=== PATIENT | female | born 1955 | race Caucasian/White ===

== ENCOUNTER 2017-06-26 00:15 | Inpatient (IN) | payer OTHER ==
[~2017-06-26] VITALS: Ht 162.6 cm; Wt 40.0 kg
[~2017-06-26 00:15] MED LIST: ALEVE220 MG PO; ARTOS OU; ATENOLOL100 MG; COL100 PO; DIT5 PO; FERROUSAL325 MG PO; IBUPROFEN600 MG PO; KEP500 PO; KEPPRA500 MG PO; LAC PO; LEVAQUIN750 MG PO; LEVOFLOXACIN500 M1 PO; LEVOTHYROXINE0.05 M2 PO; MOTRIN800 MG PO; NOR10T PO; OCU OS; RESTORIL15 MG PO; TEN50 PO; ZOF4 PO; [UNRECOGNIZED DRUG - REMARK]; [UNRECOGNIZED DRUG - REMARK]
[2017-06-26 00:32] VITALS: Ht 162.6 cm; Wt 40.0 kg
[2017-06-26 01:34] LABS: BASOPHIL % 0.1 % (0-2); PLATELET COUNT 133 x10^3mcL (130-400); RED CELL DISTRIBUTION WIDTH 13.8 % (11.5-14.5)
[2017-06-26 01:38] LABS: microscopic required? YES; urine erythrocyte TRACE (NEGATIVE)
[2017-06-26 01:43] LABS: CARBON DIOXIDE 26.6 mmol/L (21-32); CHLORIDE SERUM 102 mmol/L (98-107); CREATININE SERUM 0.8 mg/dL (0.6-1.0); GFR1 > 60 mL/min; GLUCOSE SERUM 184 mg/dL (74-106); POTASSIUM SERUM 3.2 mmol/L (3.5-5.1); SODIUM SERUM 139 mmol/L (136-145)
[2017-06-26 01:47] LABS: ALBUMIN 3.4 g/dL (3.4-5.0); ALKALINE PHOSPHATASE 99 U/L (46-116); ALT/SGPT 17 U/L (14-59); AST/SGOT 17 U/L (15-37); BILIRUBIN TOTAL 0.38 mg/dL (0.20-1.00); TOTAL PROTEIN, SERUM 7.7 g/dL (6.4-8.2)
[2017-06-26 01:56] LABS: CK-MB 0.8 ng/mL (0-3.6)
[2017-06-26 05:26] VITALS: BP 114/76
[2017-06-26 05:52] VITALS: BP 114/76
[2017-06-26 09:50] VITALS: BP 129/70
[2017-06-26 12:46] LABS: PHOSPHOROUS 3.6 mg/dL (2.5-4.9)
[2017-06-26 12:48] LABS: CHOLESTEROL/HDL RATIO 2.2
[2017-06-26 12:53] LABS: T3 TOTAL 1.09 ng/mL
[2017-06-26 13:00] LABS: FREE T4 0.88 ng/dL (0.76-1.46); T4(THYROXINE) 6.5 ug/dL (4.7-13.3)
[2017-06-26 13:19] VITALS: BP 123/66
[2017-06-26 17:02] VITALS: BP 126/78
[2017-06-26 21:38] VITALS: BP 107/55
[2017-06-27 06:05] VITALS: BP 111/67
[2017-06-27 07:15] LABS: CALCIUM 8.6 mg/dL (8.5-10.1); CARBON DIOXIDE 27.1 mmol/L (21-32); CHLORIDE SERUM 110 mmol/L (98-107); CREATININE SERUM 0.7 mg/dL (0.6-1.0); GFR1 > 60 mL/min; GLUCOSE SERUM 83 mg/dL (74-106); POTASSIUM SERUM 4.4 mmol/L (3.5-5.1); SODIUM SERUM 144 mmol/L (136-145)
[2017-06-27 07:32] LABS: BASOPHIL % 0.4 % (0-2); RED CELL DISTRIBUTION WIDTH 14.3 % (11.5-14.5)
[2017-06-27 08:00] LABS: PLATELET COUNT 121 x10^3mcL (130-400)
[2017-06-27 09:54] VITALS: BP 137/85
[2017-06-27 12:50] VITALS: BP 131/77
[2017-06-27 17:35] VITALS: BP 126/85
[2017-06-27 20:00] VITALS: BP 130/76
[2017-06-28 05:35] VITALS: BP 139/80
[2017-06-28] MEDS ORDERED: LEVAQUIN750 MG PO (07:54)
[2017-06-28 10:24] VITALS: BP 141/77
[2017-06-28 11:39] LABS: CALCIUM 9.1 mg/dL (8.5-10.1); CARBON DIOXIDE 26.9 mmol/L (21-32); CHLORIDE SERUM 106 mmol/L (98-107); CREATININE SERUM 0.8 mg/dL (0.6-1.0); GFR1 > 60 mL/min; GLUCOSE SERUM 153 mg/dL (74-106); POTASSIUM SERUM 4.1 mmol/L (3.5-5.1); SODIUM SERUM 144 mmol/L (136-145)
[2017-06-28 11:42] LABS: BASOPHIL % 0.3 % (0-2); PLATELET COUNT 152 x10^3mcL (130-400); RED CELL DISTRIBUTION WIDTH 14.2 % (11.5-14.5)
[2017-06-28] MEDS ORDERED: LAC PO (12:07)
[2017-06-28] MEDS ORDERED: KEP500 PO (12:08)
[2017-06-28] MEDS ORDERED: [UNRECOGNIZED DRUG - OTHER] OP (12:08)
[2017-06-28] MEDS ORDERED: COL100 PO (12:10)
[2017-06-28] MEDS ORDERED: SYN5 PO (12:10)
[2017-06-28 13:06] VITALS: BP 141/77
[2017-06-28 14:52] VITALS: BP 128/58
[2017-06-28 18:04] VITALS: BP 116/71
== END 2017-06-28 18:52 | disposition home or self-care (01) | DRG 53 ==
LOC: ED 00:15 → DU 03:36 → MU 06-28 09:17
PROVIDERS: Emergency Medicine; Student in an Organized Health Care Education/Training Program
DX: G40.909 Epilepsy, unspecified, not intractable, without status epilepticus (principal); N17.0 Acute kidney failure with tubular necrosis; N39.0 Urinary tract infection, site not specified; M94.0 Chondrocostal junction syndrome [Tietze]; K21.9 Gastro-esophageal reflux disease without esophagitis; E87.6 Hypokalemia; M06.9 Rheumatoid arthritis, unspecified; I10 Essential (primary) hypertension; E11.9 Type 2 diabetes mellitus without complications; E03.9 Hypothyroidism, unspecified; Z53.29 Procedure and treatment not carried out because of patient's decision for other reasons; Z88.5 Allergy status to narcotic agent; Z88.8 Allergy status to other drugs, medicaments and biological substances; Z88.6 Allergy status to analgesic agent; Z79.899 Other long term (current) drug therapy; Z68.1 Body mass index [BMI] 19.9 or less, adult
CPT/HCPCS: 83880; 84439; J0696; J3480; J3490; J7030; J7050

== ENCOUNTER 2017-07-01 10:14 | Inpatient (IN) | payer MEDICAID ==
[~2017-07-01] VITALS: Ht 162.6 cm; Wt 41.3 kg
[~2017-07-01 10:14] MED LIST changes: +SYN5 PO; +[UNRECOGNIZED DRUG - OTHER] OP
[2017-07-01 10:15] VITALS: Ht 162.6 cm; Wt 41.3 kg
[2017-07-01 10:51] LABS: BASOPHIL % 0.4 % (0-2); PLATELET COUNT 150 x10^3mcL (130-400); RED CELL DISTRIBUTION WIDTH 13.8 % (11.5-14.5)
[2017-07-01 10:55] LABS: CARBON DIOXIDE 28.8 mmol/L (21-32); CHLORIDE SERUM 104 mmol/L (98-107); CREATININE SERUM 0.9 mg/dL (0.6-1.0); GFR1 > 60 mL/min; GLUCOSE SERUM 147 mg/dL (74-106); POTASSIUM SERUM 3.8 mmol/L (3.5-5.1); SODIUM SERUM 142 mmol/L (136-145)
[2017-07-01 11:01] LABS: ALBUMIN 3.7 g/dL (3.4-5.0); ALKALINE PHOSPHATASE 93 U/L (46-116); ALT/SGPT 14 U/L (14-59); AST/SGOT 15 U/L (15-37); BILIRUBIN TOTAL 0.61 mg/dL (0.20-1.00); TOTAL PROTEIN, SERUM 8.4 g/dL (6.4-8.2)
[2017-07-01 15:06] LABS: MAGNESIUM 2.1 mg/dL (1.8-2.4); PHOSPHOROUS 3.3 mg/dL (2.5-4.9)
[2017-07-01 15:15] LABS: FREE T4 1.01 ng/dL (0.76-1.46); FREE THYROXINE INDEX 2.6 ug/dL (1.4-4.5); T4(THYROXINE) 8.6 ug/dL (4.7-13.3)
[2017-07-01 15:18] LABS: T3 TOTAL 1.01 ng/mL
[2017-07-01 15:19] VITALS: BP 135/86
[2017-07-01 17:03] VITALS: BP 125/75
[2017-07-01 20:06] VITALS: BP 133/72
[2017-07-01 20:45] VITALS: BP 145/74
[2017-07-02 01:57] LABS: microscopic required? YES; urine erythrocyte TRACE (NEGATIVE)
[2017-07-02 05:44] VITALS: BP 127/68
[2017-07-02 09:22] VITALS: BP 156/84
[2017-07-02 09:39] LABS: BASOPHIL % 0.5 % (0-2); PLATELET COUNT 131 x10^3mcL (130-400); RED CELL DISTRIBUTION WIDTH 13.6 % (11.5-14.5)
[2017-07-02 09:58] LABS: CALCIUM 8.4 mg/dL (8.5-10.1); CARBON DIOXIDE 25.7 mmol/L (21-32); CHLORIDE SERUM 105 mmol/L (98-107); CREATININE SERUM 0.7 mg/dL (0.6-1.0); GFR1 > 60 mL/min; GLUCOSE SERUM 202 mg/dL (74-106); SODIUM SERUM 142 mmol/L (136-145)
[2017-07-02] MEDS ORDERED: KEP500 PO (10:31)
[2017-07-02 14:35] VITALS: BP 120/84
[2017-07-02 15:56] VITALS: BP 127/68
[2017-07-02 17:38] VITALS: BP 135/75
== END 2017-07-02 20:47 | disposition home or self-care (01) | DRG 53 ==
LOC: ED 10:14 → DU 14:05
PROVIDERS: Emergency Medicine; Family Medicine
DX: G40.909 Epilepsy, unspecified, not intractable, without status epilepticus (principal); I10 Essential (primary) hypertension; M06.9 Rheumatoid arthritis, unspecified; E03.9 Hypothyroidism, unspecified; Z68.22 Body mass index [BMI] 22.0-22.9, adult
CPT/HCPCS: 84439; J7030; Q0092